=== PATIENT | female | born 2005 | race Caucasian/White ===

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

== ENCOUNTER 2023-02-20 06:19 | Emergency (ER) | payer BC, SELFPAY ==
[2023-02-20 06:20] VITALS: BP 108/71; PULSE 93; RESP 16; TEMP 36.4; O2SAT 100
--- NOTE | 2023-02-20 06:41 | PC.NURSE ---
C/o lower left back pain x 9 days. Pt reports her PMD called in cipro for possible UTI on Sunday. On Sunday was seen at Urgent care and had CT scan completed showing possible Crohn's flair up. They changed her abx to Bactrim and gave her zofran and pain medication. States this am pain is not any better. States that her pain sometimes goes down into her left leg and buttock. Denies any known strain or trauma.
--- NOTE | 2023-02-20 07:07 | PC.NURSE ---
Report to BARBRA Duarte
[2023-02-20 07:21] LABS: Basophils Percent Auto 0.2 % (0.2-1.2); Eosinophils Percent Auto 0.2 % (0-4.4); Hematocrit 40.2 % (37.0-47.0); Hemoglobin 12.6 g/dL (12.0-15.0); Immature Granulocyte Absolute 0.05 K/mm3 (0.00-0.031); Immature Granulocyte Percent A 0.4 % (0-0.5); Lymphocytes Percent Auto 24.1 % (18.3-44.2); Mean Corpuscular HGB Conc 31.3 g/dl (32-36); Mean Corpuscular Hemoglobin 27.7 pg (26-34); Mean Corpuscular Volume 88.4 fl (80-100); Mean Platelet Volume 8.6 fl (7.4-10.4); Monocytes Absolute Auto 1.1 K/mm3 (0.1-0.6); Monocytes Percent Auto 7.9 % (2.6-8.5); Neutrophils Absolute Auto 9.2 K/mm3 (1.3-6.7); Neutrophils Percent Auto 67.2 % (45.5-73.1); Platelet Count Result 284 k/mm3 (150-375); Red Blood Count 4.55 M/mm3 (4.2-5.4); Red Cell Distribution Width 14.3 % (11.5-14.5); White Blood Count 13.7 K/mm3 (4.5-10.0)
[2023-02-20 07:22] LABS: Appearance Urine Cloudy (Clear); Bacteria Urine 1+ /hpf; Bilirubin Urine Negative (Negative); Blood Urine Negative (Negative); Color Urine Dark Yellow (Yellow); Glucose Urine UA Negative (Negative); Ketones Urine Trace mg/dL (Negative); Leukocyte Esterase Ur 1+ LEU/UL (Negative); Need Manual Microscopic Reviewed; Nitrate Urine Negative (Negative); Non Pathogenic Casts 0-2; Protein Urine Negative (Negative); RBC Urine 0-2 /hpf (0-2); Specific Grav Ur 1.031 (1.001-1.035); Squamous Epithelial Cell Urine Few /hpf (Few); WBC Urine 0-5 /hpf; pH Urine 6.5 (5.0-9.0)
[2023-02-20 07:29] LABS: Add Urine Microscopic? YES
[2023-02-20 07:32] LABS: Alanine Aminotransferase 14 U/L (6-35); Albumin Level 3.5 g/dL (3.7-5.6); Alkaline Phosphatase 72 U/L (45-116); Anion Gap 6 mmol/L (8-16); Aspartate Amino Transferase 19 U/L (14-36); Bilirubin,Total 0.3 mg/dL (0.2-1.3); Blood Urea Nitrogen 17 mg/dL (8-21); Carbon Dioxide 30 mmol/L (22-30); Chloride 101 mmol/L (98-107); Estimated CRCL calculation 80 ml/min; Estimated Glomerular Filt Rate > 60; Glucose 123 mg/dL (65-110); Lipase 33 U/L (23-300); Potassium 3.5 mmol/L (3.4-5.0); Sodium 137 mmol/L (134-143)
[2023-02-20 07:33] LABS: Lactic Acid Reflex 2.6 mmol/L (0.7-2.0)
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
[2023-02-20] MEDS: HYDROcodone/acetaminophen (*CRX) 5-325 MG TABLET 1 TAB PO (07:51)
[2023-02-20] MEDS: SODIUM CHLORIDE 0.9% IV 1,000 ML 999 ML IV CONT (07:58)
[2023-02-20 08:56] VITALS: BP 96/54; PULSE 85; RESP 14; O2SAT 98
[2023-02-20 10:19] LABS: Reflex Lactic Acid Yes or No Add Lactic
== END 2023-02-20 09:24 | disposition home or self-care (01) ==
PROVIDERS: Emergency Provider Emergency Medicine; PCP Family Medicine
DX: M54.42 Lumbago with sciatica, left side (principal); K50.90 Crohn's disease, unspecified, without complications; F17.290 Nicotine dependence, other tobacco product, uncomplicated
CPT/HCPCS: 36415; 80053; 81001; 81025; 83605; 83690; 85025; 99283; A9270; J7030

== ENCOUNTER 2023-06-20 08:42 | Emergency (ER) | payer BC, SELFPAY ==
[2023-06-20] VITALS (18 sets, daily range): BP systolic 91–120; BP diastolic 53–72; PULSE 62–93; RESP 12–20; TEMP 36.8; O2SAT 99–100
--- NOTE | ~2023-06-20 | CT_ITS ---
EXAMINATION: CT abdomen pelvis w con INDICATION: Abdominal pain, history of Crohn's TECHNIQUE: Computed tomographic images of the abdomen and pelvis were obtained after the administrati on of 100 cc of Omnipaque 350 intravenous contrast. The dose-length product (DLP) was 216.06 mGy-cm. Automated exposure control and iterative reconstruction technique were employed. COMPARISON: 12/22/2022 FINDINGS: The lung bases are clear. The heart size is normal. The liver, spleen, pancreas, gallbladde r, and adrenal glands are normal. The kidneys are unremarkable. No free intraperitoneal gas or eviden ce of bowel obstruction. There is persistent wall thickening and increased enhancement of the termina l ileum. There appears to be an enteroenteric fistula of the right lower quadrant with a possible 1.6 x 1.2 cm interloop abscess best appreciated on coronal reconstructed image 35. There is mild mesente thalia lymphadenopathy, likely reactive. There are no dilated loops of bowel. The visualized osseous str uctures are unremarkable. There is a small volume of pelvic ascites. IMPRESSION: 1. 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 Reviewed, dictated and finalized at location B. R OPERATOR IMPRESSION: 1. 

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
[2023-06-20 09:59] LABS: Basophils Percent Auto 0.4 % (0.2-1.2); Eosinophils Absolute Auto 0.2 K/mm3 (0-0.3); Eosinophils Percent Auto 2.6 % (0-4.4); Hematocrit 38.1 % (37.0-47.0); Hemoglobin 12.3 g/dL (12.0-15.0); Immature Granulocyte Absolute 0.02 K/mm3 (0.00-0.031); Immature Granulocyte Percent A 0.2 % (0-0.5); Lymphocytes Absolute Auto 1.66 K/mm3 (0.9-3.2); Lymphocytes Percent Auto 17.7 % (18.3-44.2); Mean Corpuscular HGB Conc 32.3 g/dl (32-36); Mean Corpuscular Hemoglobin 28.1 pg (26-34); Mean Platelet Volume 9.3 fl (7.4-10.4); Monocytes Absolute Auto 0.7 K/mm3 (0.1-0.6); Monocytes Percent Auto 7.4 % (2.6-8.5); Neutrophils Absolute Auto 6.7 K/mm3 (1.3-6.7); Neutrophils Percent Auto 71.7 % (45.5-73.1); Platelet Count Result 255 k/mm3 (150-375); Red Blood Count 4.38 M/mm3 (4.2-5.4); Red Cell Distribution Width 11.4 % (11.5-14.5); White Blood Count 9.4 K/mm3 (4.5-10.0)
[2023-06-20 10:09] LABS: Appearance Urine Clear (Clear); Bacteria Urine Rare /hpf; Bilirubin Urine Negative (Negative); Blood Urine Negative (Negative); Color Urine Yellow (Yellow); Glucose Urine UA Negative (Negative); Ketones Urine Trace mg/dL (Negative); Leukocyte Esterase Ur Negative LEU/UL (Negative); Mucus Urine Present /lpf; Need Manual Microscopic Reviewed; Nitrate Urine Negative (Negative); Protein Urine Trace mg/dL (Negative); Squamous Epithelial Cell Urine Occasional /hpf (Few); WBC Urine 0-5 /hpf
[2023-06-20 10:10] LABS: Specific Grav Ur 1.037 (1.001-1.035)
[2023-06-20 10:11] LABS: Add Urine Microscopic? YES; Alanine Aminotransferase 12 U/L (6-35); Alkaline Phosphatase 86 U/L (45-116); Anion Gap 6 mmol/L (8-16); Aspartate Amino Transferase 19 U/L (14-36); Bilirubin,Total 0.4 mg/dL (0.2-1.3); Blood Urea Nitrogen 15 mg/dL (8-21); Calcium 9.6 mg/dL (8.9-10.7); Carbon Dioxide 27 mmol/L (22-30); Chloride 105 mmol/L (98-107); Estimated CRCL calculation 80 ml/min; Estimated Glomerular Filt Rate > 60; Glucose 82 mg/dL (65-110); Lipase 30 U/L (23-300); Potassium 3.8 mmol/L (3.4-5.0); Sodium 138 mmol/L (134-143)
[2023-06-20] MEDS: MORPHINE SULFATE (*CRX) 4 MG/ML INJ IV PUSH ×2 (10:30→14:59)
[2023-06-20] MEDS: ONDANSETRON INJ 4 MG/2 ML VIAL IV PUSH (10:30)
[2023-06-20] MEDS: SODIUM CHLORIDE 0.9% IV 1,000 ML 999 ML IV CONT (10:31)
[2023-06-20] MEDS: metroNIDAZOLE 500 MG/ISO 100ML 500 MG/100 ML BAG 100 MG IVPB (13:40)
== END 2023-06-20 16:15 | disposition short-term general hospital (02) ==
PROVIDERS: Emergency Provider Physician Assistant; PCP Family Medicine
DX: K65.1 Peritoneal abscess (principal); F17.290 Nicotine dependence, other tobacco product, uncomplicated
CPT/HCPCS: 36415; 74177; 80053; 81001; 81025; 83690; 85025; 87040; 96361; 96365; 96367; 96375; 96376; 99285; J0696; J1836; J2270; J2405; J7030; Q9967

== ENCOUNTER 2023-09-17 15:31 | Emergency (ER) | payer BC, SELFPAY ==
--- NOTE | ~2023-09-17 | CT_ITS ---
EXAMINATION: CT abdomen pelvis w con DATE: 09/17/2023 17:37 INDICATION: Abdominal pain TECHNIQUE: Computed tomography (CT) of the abdomen and pelvis was performed with 100 mL Omnipaque-350 intravenous contrast. Automated exposure control and iterative reconstruction technique were employe d. The dose-length product was 218.36 mGy-cm. COMPARISON: 06/20/2023 FINDINGS: Lung bases are clear. Heart size normal. No pericardial or pleural effusion. Liver, decompressed gall bladder, spleen, pancreas, bilateral adrenal glands and kidneys are normal. There are some wall thick ening and mucosal hyperemia along the terminal ileum consistent with terminal ileitis. Appendix is no rmal. Bladder is normal. Anteverted uterus and bilateral adnexa are unremarkable. Small amount of lik patricia physiologic versus reactive free fluid in the cul-de-sac. No abscess or free intraperineal gas. N o pathologically enlarged abdominal or pelvic lymphadenopathy. Bones are unremarkable. IMPRESSION: 1. Persistent terminal ileitis consistent with Crohn's disease with minimal either physiologic versus reactive free fluid in the cul-de-sac. No abscess or free intraperitoneal gas. Reviewed, dictated and finalized at location A. IMPRESSION: 1. Persistent terminal ileitis consistent with Crohn's disease with minimal eit her physiologic versus reactive free fluid in the cul-de-sac. No abscess or robert e intraperitoneal gas.
[2023-09-17 15:36] VITALS: BP 126/76; PULSE 77; RESP 16; TEMP 36.8; O2SAT 98
--- NOTE | 2023-09-17 16:06 | ED.GENADULT ---
HPI - General Adult General Chief complaint: Abdominal Pain <Carmen Silverio August, - Last Filed: 09/17/23 16:12> Stated complaint: abdominal pain <Carmen Silverio August, - Last Filed: 09/17/23 16:12> Time Seen by Provider: 09/17/23 16:06 <Carmen Silverio August, - Last Filed: 09/17/23 16:12> Focused HPI: Cecille Anaya is a 17 y/o female with PMhx of Crohn's and had an abscess to her intestines in May and was transferred from here to [facility] because that is who her GI specialist is. She was on IV antibiotics and she was d/c home with Oral antibiotics. She reports she has been doing well until today when she started to have right lower abdominal pain that started today and across her abdomen - she states this pain is similar to her previous GI abscess No previous abdominal surgeries No fevers/chills Denies Nausea/ Vomiting LMP September 02 - GENERAL: Well-appearing, well-nourished, and in no acute distress. HEAD: Normocephalic, atraumatic. CHEST: Clear to auscultation. ?No respiratory distress. HEART: Regular rate and rhythm.? NEURO: ?Alert and oriented x3. Patient screened in triage and initial orders placed.? ?Additional care and disposition to be based upon?diagnostic testing and treatment. <Carmen Silverio August, - Last Filed: 09/17/23 16:12> Source: patient and family <Clarence Dupont MD - Last Filed: 09/17/23 18:52> Mode of arrival: ambulatory <Clarence Dupont MD - Last Filed: 09/17/23 18:52> Limitations: no limitations <Clarence Dupont MD - Last Filed: 09/17/23 18:52> History of Present Illness HPI narrative: 17-year-old with a history of Crohn's here with a complaint of right lower abdominal pain started yesterday. She denies any fever or chills no history of blood in the stool. She follows with a GI specialist at [facility]. Patient states that she had intra-abdominal abscesses in month of May and was transferred from [place] to [facility] at that time. Patient states that she she was on steroids in May . <Clarence Dupont MD - Last Filed: 09/17/23 18:52> Onset (ago): day(s) (1) <Clarence Dupont MD - Last Filed: 09/17/23 18:52> Location: abdomen <Clarence Dupont MD - Last Filed: 09/17/23 18:52> Radiation: non-radiation <Clarence Dupont MD - Last Filed: 09/17/23 18:52> Severity: moderate <Clarence Dupont MD - Last Filed: 09/17/23 18:52> Quality: aching <Clarence Dupont MD - Last Filed: 09/17/23 18:52> Relieving factors: none <Clarence Dupont MD - Last Filed: 09/17/23 18:52> Exacerbating factors: none <Clarence Dupont MD - Last Filed: 09/17/23 18:52> Associated symptoms: denies other symptoms <Clarence Dupont MD - Last Filed: 09/17/23 18:52> Treatments prior to arrival: none <Clarence Dupont MD - Last Filed: 09/17/23 18:52> Related Data Allergies/adverse reactions: Allergies Allergy/AdvReac Type Severity Reaction Status Date / Time amoxicillin [From Augmentin] Allergy Severe Hives Verified 09/17/23 17:50 banana Allergy Severe Anaphylaxis Verified 09/17/23 17:50 clavulanic acid Allergy Severe Hives Verified 09/17/23 17:50 [From Augmentin] Penicillins Allergy Anaphylaxis Verified 09/17/23 17:50 <Carmen Arroyo APRN - Last Filed: 09/17/23 16:12> Review of Systems Review of Systems: All systems reviewed & are unremarkable except as noted in HPI and below <Clarence Dupont MD - Last Filed: 09/17/23 18:52> Constitutional: Constitutional: Reports no additional constitutional complaints <Clarence Dupont MD - Last Filed: 09/17/23 18:52> Eyes: Eyes: Reports no additional eye complaints <Clarence Dupont MD - Last Filed: 09/17/23 18:52> ENT: Reports system reviewed and no additional complaints, except as documented <Clarence Dupont MD - Last Filed: 09/17/23 18:52> Cardiovascular: Cardiovascular: Reports no additional cardiovascular complaints <Clarence Dupont MD - Last Filed: 09/17/23 18:52> Re
[2023-09-17] MEDS: KETOROLAC 30 MG/ML VIAL (*BKC) IV PUSH (16:44)
[2023-09-17] MEDS: FAMOTIDINE 20 MG/2 ML VIAL IV PUSH (16:46)
[2023-09-17 17:00] LABS: Basophils Percent Auto 0.3 % (0.2-1.2); Eosinophils Absolute Auto 0.4 K/mm3 (0-0.3); Eosinophils Percent Auto 3.2 % (0-4.4); Hematocrit 42.2 % (37.0-47.0); Hemoglobin 13.9 g/dL (12.0-15.0); Immature Granulocyte Absolute 0.03 K/mm3 (0.00-0.031); Immature Granulocyte Percent A 0.3 % (0-0.5); Lymphocytes Absolute Auto 2.87 K/mm3 (0.9-3.2); Lymphocytes Percent Auto 24.5 % (18.3-44.2); Mean Corpuscular HGB Conc 32.9 g/dl (32-36); Mean Corpuscular Hemoglobin 28.8 pg (26-34); Mean Corpuscular Volume 87.6 fl (80-100); Monocytes Absolute Auto 0.7 K/mm3 (0.1-0.6); Monocytes Percent Auto 5.6 % (2.6-8.5); Neutrophils Absolute Auto 7.7 K/mm3 (1.3-6.7); Neutrophils Percent Auto 66.1 % (45.5-73.1); Platelet Count Result 246 k/mm3 (150-375); Red Blood Count 4.82 M/mm3 (4.2-5.4); Red Cell Distribution Width 12.8 % (11.5-14.5); White Blood Count 11.7 K/mm3 (4.5-10.0)
[2023-09-17 17:01] LABS: Appearance Urine Clear (Clear); Bilirubin Urine Negative (Negative); Blood Urine Negative (Negative); Color Urine Yellow (Yellow); Glucose Urine UA Negative (Negative); Ketones Urine Negative (Negative); Leukocyte Esterase Ur Negative LEU/UL (Negative); Nitrate Urine Negative (Negative); Protein Urine Negative (Negative); Specific Grav Ur 1.021 (1.001-1.035); Urobilinogen Urine 0.2 mg/dL (<2.0); pH Urine 5.5 (5.0-9.0)
[2023-09-17 17:07] LABS: Add Urine Microscopic? NO
[2023-09-17 17:13] LABS: Alanine Aminotransferase 20 U/L (6-35); Albumin Level 4.5 g/dL (3.7-5.6); Alkaline Phosphatase 96 U/L (45-116); Anion Gap 9 mmol/L (4-12); Aspartate Amino Transferase 27 U/L (14-36); Bilirubin,Total 0.4 mg/dL (0.2-1.3); Blood Urea Nitrogen 11 mg/dL (8-21); Calcium 9.4 mg/dL (8.9-10.7); Carbon Dioxide 23 mmol/L (22-30); Chloride 106 mmol/L (98-107); Estimated CRCL calculation 94 ml/min; Estimated Glomerular Filt Rate > 60; Glucose 84 mg/dL (65-110); Lactic Acid Reflex 0.9 mmol/L (0.7-2.0); Potassium 3.9 mmol/L (3.4-5.0); Sodium 138 mmol/L (134-143)
[2023-09-17 17:51] VITALS: BP 110/71; PULSE 64; RESP 11; O2SAT 100
[2023-09-17] MEDS: predniSONE 20 MG TABLET 40 MG PO (18:57)
[2023-09-17 18:58] VITALS: BP 106/65; PULSE 78; RESP 13; O2SAT 99
[2023-09-17 19:02] VITALS: BP 106/65; PULSE 78; RESP 13; TEMP 36.8; O2SAT 100
[2023-09-17 19:08] LABS: CRP < 0.5 mg/dL (<1.0)
== END 2023-09-17 19:03 | disposition home or self-care (01) ==
PROVIDERS: Nurse Practitioner Family; Emergency Provider Family Medicine; PCP Family Medicine
DX: K50.00 Crohn's disease of small intestine without complications (principal); F17.290 Nicotine dependence, other tobacco product, uncomplicated
CPT/HCPCS: 36415; 74177; 80053; 81003; 81025; 83605; 85025; 86140; 96374; 96375; 99284; J1885; J7512; Q9967

== ENCOUNTER 2023-12-12 08:58 | Outpatient (RCR) | payer BC, SELFPAY ==
[2023-12-12 09:09] VITALS: BP_SYST 65
--- NOTE | 2023-12-18 09:17 | PTOPEVAL1 ---
Assessment and note entered by Barbara Cerrato, PT Evaluation Information Assessment Status Evaluation Diagnosis M25.511 ICD-10 Condition Codes (PT) M25.511,M25.521,Weakness R53.1 Onset approx 3 months ago Subjective Information Pt reports pain to R shoulder occasionally goes down to the R arm. Reports approx 3 months ago lifting a patient at work and felt a pop on the R shoulder, felt more of a soreness, but gradually got worse over time. 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 Pain wakes her up at night, moving makes it worst; resting, ice, heat, tylenol helps to relieve pain. Pt states any activity that involves overhead reaching, and reaching out to the side to push/ pull an object is extremely challenging at this time. She uses intermittent ice and heat after work at night, middle of the night. Personal goal for therapy is to avoid surgery and perform activities at home and work at pain free levels. Used to play soccer, basketball, volleyball. Plan of Care Interventions Electrical Stimulation,Manual Therapy,Neuro Re- education,Patient/Caregiver Educati,Therapeutic Activities,Therapeutic Exercise,Ultrasound Other Interventions IASTM, Taping PT Services Indicated Yes Treatment Frequency and 2x/wk x 12 visits Duration These treatments will address the objective and functional deficits as defined above. The patient will be advanced safely and appropriately in order for the patient to progress towards his/her prior level of function. Additional exercises will be introduced and as well as a comprehensive home exercise program upon discharge, if needed, ?to ensure carryover of functional gains achieved in the clinic. This treatment plan has been reviewed and agreement upon by the patient.
--- NOTE | 2023-12-19 13:36 | PTOPEVAL1 ---
Assessment and note entered by Barbara Cerrato, PT Evaluation Information Assessment Status Evaluation Diagnosis M25.511 ICD-10 Condition Codes (PT) M25.511,M25.521,Weakness R53.1 Onset approx 3 months ago Subjective Information Pt reports pain to R shoulder occasionally goes down to the R arm. Reports approx 3 months ago lifting a patient at work and felt a pop on the R shoulder, felt more of a soreness, but gradually got worse over time. 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 Pain wakes her up at night, moving makes it worst; resting, ice, heat, tylenol helps to relieve pain. Pt states any activity that involves overhead reaching, and reaching out to the side to push/ pull an object is extremely challenging at this time. She uses intermittent ice and heat after work at night, middle of the night. Personal goal for therapy is to avoid surgery and perform activities at home and work at pain free levels. Used to play soccer, basketball, volleyball. Assessment PT Clinical Summary Pt is a 18 yo female who presents to therapy with c/o increasing pain to R shoulder occasionally radiating down to R elbow, demos significant loss of ROM and strength which greatly impact her work responsibilities, ADLs and IADLs at this time. She will benefit from skilled PT to address pain, improve shoulder mobility and stability. Plan of Care Interventions Electrical Stimulation,Manual Therapy,Neuro Re- education,Patient/Caregiver Education,Therapeutic Activities,Therapeutic Exercise,Ultrasound Other Interventions IASTM, Taping PT Services Indicated Yes Treatment Frequency and 2x/wk x 12 visits Duration These treatments will address the objective and functional deficits as defined above. The patient will be advanced safely and appropriately in order for the patient to progress towards his/her prior level of function. Additional exercises will be introduced and as well as a comprehensive home exercise program upon discharge, if needed, ?to ensure carryover of functional gains achieved in the clinic. This treatment plan has been reviewed and agreement upon by the patient.
--- NOTE | 2023-12-19 14:29 | OPREHPOC ---
Outpatient Therapy Plan of Care This is a Multidisciplinary Plan of Care that may contain components documented by all disciplines (PT, OT, and ST.) PT Problem 1 PT Problem #1 Knowledge Deficit PT Goal 1 Goal / Goal Update Pt will demo HEPs for shoulder stability and strengthening independently Target Visit 12 PT Problem 2 PT Problem #2 Pain PT Goal 1 Goal / Goal Update Pt will report 2/10 pain to R shoulder when performing abduction and overhead flexion Target Visit 12 PT Problem 3 PT Problem #3 Impaired Strength PT Goal 1 Goal / Goal Update Pt will demo 4/5 gross strength to R shoulder muscles Target Visit 12 PT Problem 4 PT Problem #4 Impaired Functional Mobil PT Goal 1 Goal / Goal Update Pt will report a decrease in score of QUICK DASH to 10 or less Target Visit 12
--- NOTE | 2024-02-01 10:25 | PTOPDC ---
Assessment and note entered by Uma Beavers, PT Evaluation Information Assessment Status Discharge - Pt Not Present Diagnosis M25.511 ICD-10 Condition Codes (PT) M25.511,M25.521,Weakness R53.1 Onset approx 3 months ago Subjective Information Pt reports pain to R shoulder occasionally goes down to the R arm. Reports approx 3 months ago lifting a patient at work and felt a pop on the R shoulder, felt more of a soreness, but gradually got worse over time. 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 Pain wakes her up at night, moving makes it worst; resting, ice, heat, tylenol helps to relieve pain. Pt states any activity that involves overhead reaching, and reaching out to the side to push/ pull an object is extremely challenging at this time. She uses intermittent ice and heat after work at night, middle of the night. Personal goal for therapy is to avoid surgery and perform activities at home and work at pain free levels. Used to play soccer, basketball, volleyball. Assessment PT Clinical Summary Pt attended evaluation only for therapy. She cancelled her first appointment, and did not return. After multiple unsuccessful attempts to reschedule, pt is being discharged due to nonattendance. Plan of Care PT Services Indicated No
--- NOTE | 2024-02-01 12:38 | PTOPDC ---
Assessment and note entered by Barbara Cerrato, PT Discharge Information Assessment Status Discharge - Pt Not Presen Diagnosis M25.511 ICD-10 Condition Codes (PT) M25.511,M25.521,Weakness R53.1 Onset approx 3 months ago Subjective Information Pt reports pain to R shoulder occasionally goes down to the R arm. Reports approx 3 months ago lifting a patient at work and felt a pop on the R shoulder, felt more of a soreness, but gradually got worse over time. 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 Pain wakes her up at night, moving makes it worst; resting, ice, heat, tylenol helps to relieve pain. Pt states any activity that involves overhead reaching, and reaching out to the side to push/ pull an object is extremely challenging at this time. She uses intermittent ice and heat after work at night, middle of the night. Personal goal for therapy is to avoid surgery and perform activities at home and work at pain free levels. Used to play soccer, basketball, volleyball. Assessment PT Clinical Summary Pt attended evaluation only for therapy. She cancelled her first appointment, and did not return. After multiple unsuccessful attempts to reschedule, pt is being discharged due to nonattendance. Plan of Care PT Services Indicated No
== END 2024-02-01 10:40 | disposition home or self-care (01) ==
LOC: ANHHIPT 08:58
PROVIDERS: PCP Family Medicine; Visit Provider Nurse Practitioner Family
DX: M25.511 Pain in right shoulder (principal)
CPT/HCPCS: 97014; 97110; 97161; G0283

== ENCOUNTER 2023-12-30 15:21 | Emergency (ER) | payer BC, SELFPAY ==
--- NOTE | ~2023-12-30 | XR_ITS ---
EXAMINATION: XR chest 2V DATE: 12/30/2023 16:10 INDICATION: Chest pain and shortness of breath TECHNIQUE: PA and lateral views of the chest were obtained. COMPARISON: Chest radiograph dated 10/05/2022 FINDINGS: The lungs remain clear with no focal airspace opacities, pulmonary edema, pleural effusion or pneumot horax. The cardiomediastinal silhouette is normal. Visualized bones and soft tissues are unremarkable . IMPRESSION: 1. Normal chest radiograph. Reviewed, dictated and finalized at location A. IMPRESSION: 1. Normal chest radiograph.
[2023-12-30 15:28] VITALS: BP 123/74; PULSE 112; RESP 18; TEMP 36.7; O2SAT 100
[2023-12-30 16:34] LABS: Strep Group A RT-PCR NOT DETECTED (Negative)
[2023-12-30 16:44] LABS: Influenza A QL RT-PCR Negative (Negative); Influenza B QL RT-PCR Negative (Negative); RSV RNA, RT-PCR Negative (Negative); SARS-CoV-2 RNA PCR Negative (Negative)
--- NOTE | 2023-12-30 17:32 | ECG_ITS ---
Test Date: 2023-12-30 17:45:02 Measurements Intervals [place] Rate: 89 P: 60 PA: 123 QRS: 6 QRSD: 88 T: 35 QT: 374 QTc: 455 Interpretive Statements SINUS RHYTHM MODERATE ST-T WAVE ABNORMALITY, CONSIDER ANTERIOR ISCHEMIA ABNORMAL ECG No previous ECG available for comparison Electronically Signed On 12-30-2023 20:15:42 CDT by Volodymyr Painting D.O.
[2023-12-30 17:52] LABS: Basophils Percent Auto 0.3 % (0.2-1.2); Eosinophils Absolute Auto 0.5 K/mm3 (0-0.3); Hematocrit 41.3 % (37.0-47.0); Hemoglobin 13.7 g/dL (12.0-15.0); Immature Granulocyte Absolute 0.04 K/mm3 (0.00-0.031); Immature Granulocyte Percent A 0.3 % (0-0.5); Lymphocytes Absolute Auto 1.81 K/mm3 (0.9-3.2); Lymphocytes Percent Auto 15.4 % (18.3-44.2); Mean Corpuscular HGB Conc 33.2 g/dl (32-36); Mean Corpuscular Hemoglobin 29.8 pg (26-34); Mean Platelet Volume 9.9 fl (7.4-10.4); Monocytes Absolute Auto 1.1 K/mm3 (0.1-0.6); Monocytes Percent Auto 9.7 % (2.6-8.5); Neutrophils Absolute Auto 8.2 K/mm3 (1.3-6.7); Neutrophils Percent Auto 70.3 % (45.5-73.1); Platelet Count Result 208 k/mm3 (150-375); Red Blood Count 4.59 M/mm3 (4.2-5.4); Red Cell Distribution Width 12.2 % (11.5-14.5); White Blood Count 11.7 K/mm3 (4.5-10.0)
[2023-12-30] MEDS: SODIUM CHLORIDE 0.9% IV 1,000 ML 999 ML IV CONT (17:58)
[2023-12-30 18:03] LABS: Alanine Aminotransferase 14 U/L (6-35); Albumin Level 4.4 g/dL (3.5-5.1); Alkaline Phosphatase 104 U/L (38-126); Anion Gap 10 mmol/L (4-12); Aspartate Amino Transferase 24 U/L (14-36); Bilirubin,Total 0.5 mg/dL (0.2-1.3); Blood Urea Nitrogen 10 mg/dL (7-17); Calcium 9.5 mg/dL (8.4-10.2); Carbon Dioxide 22 mmol/L (22-30); Chloride 105 mmol/L (98-107); Estimated CRCL calculation 91 ml/min; Estimated Glomerular Filt Rate > 60; Glucose 85 mg/dL (65-110); Lipase 52 U/L (23-300); Potassium 3.6 mmol/L (3.4-5.0); Sodium 137 mmol/L (137-145)
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
[2023-12-30 18:14] LABS: Troponin I < 0.012 ng/mL (0.000-0.034)
[2023-12-30 18:16] LABS: Prothrombin Time 13.8 Seconds (11.1-14.7)
[2023-12-30 18:18] LABS: Partial Thromboplastin Time 26.5 Seconds (22.3-36.8)
[2023-12-30 18:27] VITALS: PULSE 90; RESP 18
[2023-12-30] MEDS: IPRATROPIUM 0.5 MG/ALBUTEROL SULFATE 2.5 MG AMPUL.NEB 3 ML INHALATION (18:27)
[2023-12-30] MEDS: methylPREDNISolone SOD SUCC 125 MG VIAL IV PUSH (18:29)
[2023-12-30 18:39] VITALS: BP 130/78; PULSE 72; RESP 20; TEMP 36.7; O2SAT 99
== END 2023-12-30 18:40 | disposition home or self-care (01) ==
PROVIDERS: Emergency Medicine; Emergency Provider Emergency Medicine; PCP Family Medicine
DX: B34.9 Viral infection, unspecified (principal); K50.90 Crohn's disease, unspecified, without complications; Z72.0 Tobacco use; Z20.822 Contact with and (suspected) exposure to COVID-19
CPT/HCPCS: 36415; 71046; 80053; 83690; 84484; 85025; 85610; 85730; 87637; 87651; 93005; 94640; 96361; 96374; 99284; J2919; J7030

== ENCOUNTER 2024-07-14 15:58 | Outpatient (CLI) | payer BC, SELFPAY ==
--- NOTE | ~2024-07-14 | XR_ITS ---
XR knee LT 3V 07/14/2024 16:09 Indication: Left knee pain Procedure: 3 views left knee Comparison: No prior studies for comparison. Findings: There is anatomic alignment. No significant joint space narrowing. No fracture or traumatic malalignment. No foreign bodies. Impression: 1: No acute bone or joint abnormality. Reviewed, dictated and finalized at location B. Impression: 1: No acute bone or joint abnormality.
== END 2024-07-14 15:59 | disposition home or self-care (01) ==
LOC: GOSHIMG 15:59
PROVIDERS: PCP Nurse Practitioner Family; Visit Provider Student in an Organized Health Care Education/Training Program
DX: S89.92XA Unspecified injury of left lower leg, initial encounter (principal); X58.XXXA Exposure to other specified factors, initial encounter
CPT/HCPCS: 73562

== ENCOUNTER 2025-01-15 14:46 | Emergency (ER) | payer BC, SELFPAY ==
--- NOTE | ~2025-01-15 | XR_ITS ---
EXAMINATION: XR chest 2V, 01/15/2025 15:11 CDT HISTORY: shortness of breath COMPARISON: No comparisons available. Technique: 2 views obtained. Findings: The lungs are clear, no effusion. No pneumothorax. Heart is normal size. Mediastinal and hilar contours are within normal limits. Bony thorax no acute abnormality. Impression: No acute cardiopulmonary abnormality. Reviewed, dictated and finalized at location A. Impression: No acute cardiopulmonary abnormality.
--- OUTSIDE RECORDS SUMMARY | 2025-01-15 14:49 | XMS_ITS | Clinical Summary ---
Author Organization [facility] [address] Address [address] [place] [id number] Care Team Providers Care Compliance Spec Name Role Phone Unavailable Primary Care Provider Unavailabl e Social History Tobacco Use Types Packs/Day Years Used Date Smoking Tobacco: Never Assessed Adolescent Education Answer Date Record ed Getting School Help Needed Not on file 12/02 Comments Unknown Sex and Gender Information Value Date Recorded Sex Assigned at Not on file Legal Sex Female 8:53 AM CDT Gender Identity Not on file Sexual Orientation Not on file Plan of Treatment Health Maintenance Due Date Last Done Comments CHLAMYDIA SCREENING (ANNUAL) 11-24 YEARS 09/29/2014 HPV VACCINES (1 - 3-dose series) 09/29/2018 DTAP/TDAP/TD VACCINES (1 - Tdap) 09/29/2022 HEPATITIS B VACCINES (1 of 3 - 19+ 3-dose series) 05/2022 CERVICAL CANCER SCREENING 09/29/2024 HPV/Cotest (21-29) 09/29/2024 PAP SMEAR 09/29/2024 INFLUENZA VACCINE (#1) 2024 Insurance BS BLUE ACCESS/TRUE BLUE PPO [facility]
--- OUTSIDE RECORDS SUMMARY | 2025-01-15 14:49 | XMS_ITS | Clinical Summary ---
Author Organization [facility] Address [address] [place] [address] Care Team Providers Care Surveyor Geodetic Name Role Phone Jp Pearson MD Primary Care Provider [phone] Nagi Alejo MD Unavailable [phone] Allergies Active Allergy Reactions Criticality Noted Date Comments Amoxicillin-Pot Clavulanate Hives Medium 12/14/19 18 Per PCP Banana Itching Low 08/05/2021 Medications LORazepam (ATIVAN) 1 mg tablet Take 1 tablet by mouth prior to procedure 1 tablet 4 Active Additional Information Patient not taking.Reported on 10/28/2024 hyoscyamine (LEVSIN) 0.125 mg SL tabletIndication s:Urinary Incontinence Take 1 tablet (0.125 mg total) by mouth every 6 (six) hours as needed for cramping 120 tablet 5 Active Additional Information Patient not taking.Reported on 10/28/2024 ALPRAZolam (XANAX) 0.25 mg tablet Take by mouth 2 (two) times a day as needed 5 Active risankizumab-rza a (Skyrizi) 360 mg/2.4 mL (150 mg/mL) wearable injectorIndicati ons:Crohn's disease of small intestine with fistula (HCC) 360 mg by subcutaneous (via wearable injector) route every 8 (eight) weeks 2.4 mL 3 Active Active Problems Problem Noted Date Diagnosed Date Crohn's disease of small intestine with fistula 06/02/2024 Colon stricture 06/02/2024 Healthcare maintenance 05/30/2024 Overview (05/30/2024): Health Maintenance Pneumovax-23: discussed Prevnar-20: discussed Flu: --- COVID: --- Shingrix: discussed Tdap: 10/2014 Skin checks: yearly Eye exams: yearly Other constipation 05/30/2024 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 Year symptoms began: 2020- nausea, vomiting and weight loss. Phenotype: Penetrating (B3) with perianal disease. Distribution: ileal (L1) with upper GI disease (L4). Extraintestinal manifestations: no. Complications: perianal fistula, seton placement and removal in 2022. Prior treatments: Entyvio- disease progression with development of an abscess. Current treatment: Skyrizi started in 07/2023. Prior surgeries: seton 10/2022. Endoscopies: colonoscopy 12/2020 inflammation in the TI and esophagus. Imaging: MRI 06/2023- resolution of abscess suspect fistula from TI to transverse colon. MRE 03/2024: interval improvement of disease with acute on chronic inflammation CT scan : 05/2024- Colonoscopy: 06/30/24 with ADAM - dilated to 15 mm successfully mild ileitis on Skyrizi IBD HEALTH [employer]TE[employer]CE HBV vaccination status: Protein-calorie malnutrition 12/01/2022 Long-term use of immunosuppressant medication Treatment declined by patient 01/21/2022 Patellar tendinitis of right knee 05/02/2021 Acute pain of right knee 05/02/2021 Crohn's disease of small intestine without compl ication 01/25/2021 Abdominal pain, generalized 12/29/2020 Overview (12/29/2020): Added automatically from request for surgery [id number] Diarrhea 12/29/2020 Overview (12/29/2020): Added automatically from request for surgery [id number] Nausea and vomiting 12/29/2020 Overview (12/29/2020): Added automatically from request for surgery [id number] Weight loss 12/29/2020 Overview (12/29/2020): Added automatically from request for surgery [id number] Right foot pain 03/12/2020 Contusion of right foot 03/12/2020 Right knee injury 12/16/2015 Resolved Problems Problem Noted Date Diagnosed Date Resolved Date Perianal fistula due to Crohn's disease 07/27/2023 05/29/2024 Crohn's colitis, with abscess 06/20/2023 05/29/2024 Assessment & Plan (06/22/2023 10:35 AM KISS MIXER): Cecille is a 17 year old with history of Crohns who is admitted for abdominal pain with CT at OSH concerning for intra-abdominal abscess. Patient's recent abdominal pain is likely due to intra-abdominal abscess vs IBD flare with a small bowel to colon fistula. She has had significant improvement in pain so we will advance her diet to a regular diet. Given this, we will transition IV abx to oral and discontinue her maintenance fluids. - Blood culture, ESR, CRP - Cipro and flagyl (06/20- ) , switched to oral on 06/22 - Surgery consult, no surgical intervention needed - IR consult, no intervention needed - regular diet - tylenol, oxycodone 2.5mg PRN for pain - heat pack - PRN zofran Assessment & Plan (06/21/2023 9:00 AM KISS MIXER): Cecille is a 17 year old with history of Crohns who is admitted for abdominal pain with CT at OSH concerning for intra-abdominal abscess. Patient's recent abdominal pain is likely due to intra-abdominal abscess vs IBD flare with a small bowel to colon fistula. Given the abscess we will plan to treat with IV antibiotics. If IR recommends no further intervention we will advance diet to clears and monitor her pain. - Blood culture, ESR, CRP - Cipro and flagyl (06/20- ) - Surgery consult, no surgical intervention needed - IR consult - NPO, D5NS mIVF - tylenol, oxycodone 2.5mg PRN for pain - heat pack Assessment & Plan (06/20/2023 6:57 PM KISS MIXER): Cecille is a 17 year old with history of Crohns who is admitted for abdominal pain with CT at OSH concerning for intra-abdominal abscess. Patient's recent abdominal pain is likely due to intra-abdominal abscess vs IBD flare. With patient's CT findings, will plan to treat with IV antibiotics. - Blood culture, ESR, CRP - Cipro and flagyl (06/20- ) - Surgery consult - NPO D5NS mIVF Assessment & Plan (06/20/2023 7:38 PM KISS MIXER): Cecille is a 17 year old with history of Crohns who is admitted for abdominal pain with CT at OSH concerning for intra-abdominal abscess. Patient's recent abdominal pain is likely due to intra-abdominal abscess vs IBD flare. With patient's CT findings, will plan to treat with IV antibiotics. - Blood culture, ESR, CRP - Cipro and flagyl (06/20- ) - Surgery consult - NPO D5NS mIVF Crohn's disease involving esophagus 01/25/2021 05/29/2024 Mass of right breast 12/13/2017 018 Encounters Date Type Department Care Team Description 11/20/[address] [facility] Gastroenter[facility] [address] [facility] 12th [place] [address] [place] [address] Eva Roman Crohn's disease of small intestine with fistula (HCC) (Primary Dx) 11/18/[address] [facility] [address] [facility] 12th [place] [address] [place] [address] Sonya Markham RMA Crohn's disease of small intestine with fistula (HCC) (Primary Dx) 10/28/2024 2:00 PM CDT Lab [facility] [address] [place] [address] Leukocytosis, unspecified type 10/28/2024 1:00 PM CDT Office Visit [facility] [address] [facility] [address] [place] [address] Demi Serrano MD Leukocytosis, unspecified type 10/21/[address] [facility] H[facility] [facility] Floor [address] [place] [address] Gunjan Sy from Last 3 Months Immunizations Immunization Administration Dates Next Due DTaP / HiB / IPV 2008 HPV, Quadrivalent 11/16/2014 HPV9 03/05/2018,12/27/2016 Hep A, Ped Unspecified 12/11/2007,09/27/2006 Hep A, Unspecified 12/11/2007,09/27/2006 Influenza LAIV (Nasal) 05/06/2019 Influenza, Live, Intranasal, Quadrivalent 2019 Influenza, Quadrivalent, Split, Intramuscular Influenza, Unspecified 03/05/2018 MMR 2008 Meningococcal MCV4P (Menactra) 05/07/2020,2014 Tdap 11/16/2014 Surgical History Surgery Date Site/Laterality Comments INCISION AND DRAINAGE 10/28/2022 - 11/27/2022 Medical History Medical History Date Comments Arm fracture, right 07/2013 Anxiety and depression Crohn's disease (HCC) Family History Medical History Relation Name Comments No Known Problems Father Breast cancer Maternal Grandmother great No Known Problems Mother Cervical cancer Other 1 grandma Melanoma Other 2 uncle Skin cancer Paternal Grandfather Relation Name Status Comments Father Maternal Grandmother great Mother Other 1 grandma Other 2 uncle Alive Paternal Grandfather Social History Tobacco Use Types Packs/Day Years Used Date Smoking Tobacco: Every Day Vaping Passive Smoke Exposure: Never Smokeless Tobacco: Never Tobacco Cessation:Ready to Q uit: Not Asked; Counseling Given: Not Answered Alcohol Use Standard Drinks/Week Comments No 0 (1 standard drink = 0.6 oz pur e alcohol) AUDIT-C Answer Date Recorded Q1: How often do you have a drink containing alc ohol? 2-4 times a month 10/28/2024 Q2: How many drinks containi ng alcohol do you have on a typical day when you are drinking? 1 or 2 10/28/2024 Q3: How often do you have si x or more drinks on one occasion? Weekly 10/28/2024 PHQ-2 Answer Date Recorded PHQ-2 Total Score (If total score is 3 or more points, staff should administer the PHQ-9) 1 07/10/2023 PHQ-9 Answer Date Recorded PHQ-9 Total Score 5 07/10/2023 Personal Safety Answer Date Recorded Have you ever been in or are you currently in a harmful physical or emotional relationship or is someone making you feel afraid or unsafe? Denies 06/30/2024 Comments No Sex and Gender Information Value Date Recorded Sex Assigned at Not on file Legal Sex Female 4:17 PM CDT Gender Identity Not on file Sexual Orientation Not on file Obstetrics History Last Filed Vital Signs Vital Sign Reading Time Taken Comments Blood Pressure 112/76 10/28/2024 1:03 PM CDT Pulse 84 10/28/2024 1:03 PM CDT Temperature 36.8 C (98.2 F) 10/28/2024 1:03 PM CDT Respiratory Rate 18 10/28/2024 1:03 PM CDT Oxygen Saturation 99% 10/28/2024 1:03 PM CDT Inhaled Oxygen Concentration - - Weight 49.7 kg (109 lb 9.1 oz) 10/28/2024 1:03 P M CDT Height 155 cm (5' 1.02) 10/28/2024 1:03 PM CDT Body Mass Index 20.69 10/28/2024 1:03 PM CDT Plan of Treatment Health Maintenance Due Date Last Done Comments Cervical Cancer Screening 2003 Hepatitis C Screening 2003 Varicella Vaccines (1 of 2 - 13+ 2-dose series) 06/03/2019 Meningococcal B Vaccine (1 o f 2 - Standard) 2019 Hepatitis B Screening 09/29/2021 Regular Well Visit/Exam 18-64 09/29/2021 Pneumococcal vaccine <65 (1 of 2 - PCV) 09/29/2022 Depression Screening 07/09/2024 07/10/2023, 02/08/20 DTaP/Tdap/Td Vaccine (3 - Td or Tdap) 11/16/2024 11/16/2014, 2008 Influenza Vaccine (#1) 2024 , 05/06/2019, 03/05/2018, Additional history exists HPV Vaccines Completed 03/05/2018, 11/30, 11/16/2014 Meningococcal Vaccine Completed 05/07/2020, 015 Procedures Procedure Name Priority Date/Time Associated Diagnosis Comments COMPREHENSIVE METABOLIC PANEL Routine 01/08/2025 8:32 AM CDT Leukocytosis, unspecified type CBC WITH AUTO DIFFERENTIAL Routine 01/08/2025 8:32 AM CDT Leukocytosis, unspecified type COMPREHENSIVE METABOLIC PANEL Routine 11/28/2024 11:01 AM CDT Leukocytosis, unspecified type CBC WITH AUTO DIFFERENTIAL Routine 11/28/2024 11:01 AM CDT Leukocytosis, unspecified type EGFR Routine 10/28/2024 1:54 PM CDT Leukocytosis, unspecified type DIFFERENTIAL AUTO Routine 10/28/2024 1:5 4 PM CDT Leukocytosis, unspecified type CBC WITH AUTO DIFFERENTIAL Routine 10/28/2024 1:54 PM CDT Leukocytosis, unspecified type COMPREHENSIVE METABOLIC PANEL Routine 10/28/2024 1:54 PM CDT Leukocytosis, unspecified type FERRITIN Routine 10/28/2024 1:54 PM CDT Leukocytosis, unspecified type IRON PROFILE W/ IBC Routine 10/28/2024 1 :54 PM CDT Leukocytosis, unspecified type from Last 3 Months Results * CBC with auto differential (01/08/2025 8:32 AM CDT) WBC 10.7 3.4 - 10.8 x10E3/uL [facility] - 01 RBC 4.52 3.77 - 5.28 x10E6/uL [facility] - 01 Hgb 13.6 11.1 - 15.9 g/dL [facility] - 01 Hct 41.8 34.0 - 46.6 % [facility] - 01 MCV 93 79 - 97 fL [facility] - 01 MCH 30.1 26.6 - 33.0 pg [facility] - 01 MCHC 32.5 31.5 - 35.7 g/dL [facility] - 01 Rdw 11.8 11.7 - 15.4 % [facility] - 01 Platelets 228 150 - 450 x10E3/uL [facility] - 01 Neutrophils pct 63 Not Estab. % [facility] - 01 Lymphs pct 27 Not Estab. % [facility] - 01 Monocytes pct 5 Not Estab. % [facility] - 01 Eosinophils pct 3 Not Estab. % [facility] - 01 Basophil pct 1 Not Estab. % [facility] - 01 Neutrophil abs 6.7 1.4 - 7.0 x10E3/uL [facility] - 01 Lymphs (Absolute) 2.9 0.7 - 3.1 x10E3/uL [facility] - 01 Monocyte abs 0.5 0.1 - 0.9 x10E3/uL [facility] - 01 Eosinophils, abs 0.4 0.0 - 0.4 x10E3/uL [facility] - 01 Basophils, abs 0.1 0.0 - 0.2 x10E3/uL [facility] - 01 Immature Granulocytes 1 Not Estab. % [facility] - 01 Immature Grans (Abs) 0.1 0.0 - 0.1 x10E3/uL [facility] - 01 Blood 01/08/2025 8:32 AM CDT 01/08/2025 Narrative [facility] - 01/09/2025 6:09 AM CDT Performed at: - [facility] [id number] Oiler Helper: Vito Mcgrath PhD, Phone: [phone] us Demi Serrano MD LAB BLOOD ORDERABLES Keisha l Result [facility] - * Comprehensive metabolic panel (01/08/2025 8:32 AM CDT) [facility] Glucose 73 70 - 99 mg/dL [facility] - 01 BUN 11 6 - 20 mg/dL [facility] - 01 Creatinine, Serum 0.75 0.57 - 1.00 mg/dL [facility] - 01 eGFR 116 >59 mL/min/1.73 [facility] - 01 BUN/creat ratio 15 9 - 23 [facility] - 01 Sodium 140 134 - 144 mmol/L [facility] - 01 Potassium, sr 4.8 3.5 - 5.2 mmol/L [facility] - 01 Chloride 105 96 - 106 mmol/L [facility] - 01 CO2 24 20 - 29 mmol/L [facility] - 01 Calcium 9.6 8.7 - 10.2 mg/dL [facility] - 01 Protein, sr 6.7 6.0 - 8.5 g/dL [facility] - 01 Albumin 4.4 4.0 - 5.0 g/dL [facility] - 01 Globulin, Total 2.3 1.5 - 4.5 g/dL [facility] - 01 Bilirubin, Total 0.5 0.0 - 1.2 mg/dL [facility] - 01 Alk phos 78 44 - 121 IU/L [facility] - 01 Comment: Effective January 12, 2025 Alkaline Phosphatase reference interval will be changing to: Age Male Female 0 - 5 days 47 - 127 47 - 127 6 - 10 days 29 - 242 29 - 242 11 - 20 days 109 - 357 109 - 357 21 - 30 days 94 - 494 94 - 494 1 - 2 months 149 - 539 149 - 539 3 - 6 months 131 - 452 131 - 452 7 - 11 months 117 - 401 117 - 401 12 months - 6 years 158 - 369 158 - 369 7 - 12 years 150 - 409 150 - 409 13 years 156 - 435 78 - 227 14 years 114 - 375 64 - 161 15 years 88 - 279 56 - 134 16 years 74 - 207 51 - 121 17 years 63 - 161 47 - 113 18 - 20 years 51 - 125 42 - 106 21 - 50 years 47 - 123 41 - 116 51 - 80 years 49 - 135 51 - 125 >80 years 48 - 129 48 - 129 AST 16 0 - 40 IU/L [facility] - 01 ALT 11 0 - 32 IU/L [facility] - 01 Blood 01/08/2025 8:32 AM CDT 01/08/2025 Narrative [facility] - 01/09/2025 8:12 AM CDT Performed at: [address] [place] [id number] Oiler Helper: Vito Mcgrath PhD, Phone: [phone] us Demi Serrano MD LAB BLOOD ORDERABLES Keisha l Result [facility] - 01 * (ABNORMAL) CBC with auto differential (11/28/2024 11:01 AM CDT) WBC 14.6(H) 3.4 - 10.8 x10E3/uL [facility] - 01 RBC 4.48 3.77 - 5.28 x10E6/uL [facility] - 01 Hgb 13.5 11.1 - 15.9 g/dL [facility] - 01 Hct 40.4 34.0 - 46.6 % [facility] - 01 MCV 90 79 - 97 fL [facility] - 01 MCH 30.1 26.6 - 33.0 pg [facility] - 01 MCHC 33.4 31.5 - 35.7 g/dL [facility] - 01 Rdw 11.6(L) 11.7 - 15.4 % [facility] - 01 Platelets 280 150 - 450 x10E3/uL [facility] - 01 Neutrophils pct 77 Not Estab. % [facility] - 01 Lymphs pct 16 Not Estab. % [facility] - 01 Monocytes pct 6 Not Estab. % [facility] - 01 Eosinophils pct 1 Not Estab. % [facility] - 01 Basophil pct 0 Not Estab. % [facility] - 01 Neutrophil abs 11.2(H) 1.4 - 7.0 x10E3/uL [facility] - 01 Lymphs (Absolute) 2.3 0.7 - 3.1 x10E3/uL [facility] - 01 Monocyte abs 0.9 0.1 - 0.9 x10E3/uL [facility] - 01 Eosinophils, abs 0.1 0.0 - 0.4 x10E3/uL [facility] - 01 Basophils, abs 0.1 0.0 - 0.2 x10E3/uL [facility] - 01 Immature Granulocytes 0 Not Estab. % [facility] - 01 Immature Grans (Abs) 0.0 0.0 - 0.1 x10E3/uL [facility] - 01 Blood 11/28/2024 11:0 1 AM CDT 11/28/2024 Narrative [facility] - 11/29/2024 3:07 AM CDT Performed at: [address] [place] [id number] Oiler Helper: Vito Mcgrath PhD, Phone: [phone] us Demi Serrano MD LAB BLOOD ORDERABLES Keisha l Result [facility] * Comprehensive metabolic panel (11/28/2024 11:01 AM CDT) Pathologist [facility] Glucose 85 70 - 99 mg/dL [facility] - 01 BUN 7 6 - 20 mg/dL [facility] - 01 Creatinine, Serum 0.81 0.57 - 1.00 mg/dL [facility] - 01 eGFR 106 >59 mL/min/1.73 [facility] - 01 BUN/creat ratio 9 9 - 23 [facility] - 01 Sodium 138 134 - 144 mmol/L [facility] - 01 Potassium, sr 4.1 3.5 - 5.2 mmol/L [facility] - 01 Chloride 103 96 - 106 mmol/L [facility] - 01 CO2 21 20 - 29 mmol/L [facility] - 01 Calcium 9.8 8.7 - 10.2 mg/dL [facility] - 01 Protein, sr 6.8 6.0 - 8.5 g/dL [facility] - 01 Albumin 4.2 4.0 - 5.0 g/dL [facility] - 01 Globulin, Total 2.6 1.5 - 4.5 g/dL [facility] - 01 Bilirubin, Total 0.4 0.0 - 1.2 mg/dL [facility] - 01 Alk phos 81 44 - 121 IU/L [facility] - 01 AST 14 0 - 40 IU/L [facility] - 01 ALT 9 0 - 32 IU/L [facility] - 01 Blood 11/28/2024 11:0 1 AM CDT 11/28/2024 Narrative [facility] - 11/29/2024 3:07 AM CDT Performed at: [address] [id number] Oiler Helper: Vito Mcgrath PhD, Phone: [phone] Demi Serrano MD LAB BLOOD ORDERABLES Keisha l Result Performing Organization Address City/[facility]/ZIP Co de Phone Number [facility] - 01 * eGFR (10/28/2024 1:54 PM CDT) Pathologist [facility] eGFR >90 >=60 mL/min/1. 73 m2 Comment: Interpretive Data Reference Interval Normal >/= 90 mL/min/1.73m2 Mildly decreased* 60 - 89 mL/min/1.73m2 Mildly to moderately decreased 45 - 59 mL/min/1.73m2 Moderately to severely decreased 30 - 44 mL/min/1.73m2 Severely decreased 15 - 29 mL/min/1.73m2 Kidney Failure < 15 mL/min/1.73m2 *Relative to young adult level Estimated glomerular filtration rate is determined by the 2020 CKD-EPI equation recommended by the National Kidney Foundation (A Unifying Approach to GFR Estimation: Recommendations of the NKF-ASK Task Force on Reassessing the Inclusion of Race in Diagnosing Kidney Disease, JASN 2020). The CKD-EPI equation should not be used for patients with unstable renal function and has not been validated in children and those over 70. Current interpretive data was last reviewed 2021. Testing performed by: [facility], [address] [place] [address]., [address] Blood 10/28/2024 1:54 PM CDT 10/28/2024 1:55 PM CDT Demi Serrano MD LAB BLOOD ORDERABLES Keisha l Result [facility] [address] [facility] Department [place] [address] * (ABNORMAL) Differential, auto (10/28/2024 1:54 PM CDT) Neutrophil abs 8.48(H) 1.50 - 6.50 K/cumm Comment:Testing performed by : [address] [address] Imm gran abs 0.03 0.00 - 0.10 K/cumm [facility] Comment:Testing performed by : [address] [address] Lymphocyte abs 3.21 0.80 - 3.30 K/cumm [facility] Comment:Testing performed by : [address] [address] Monocyte abs 0.68 0.20 - 0.80 K/cumm [facility] Comment:Testing performed by : [address] [address] Eosinophil abs 0.47 0.00 - 0.50 K/cumm [facility] Comment:Testing performed by : [address] [address] Basophil abs 0.07 0.00 - 0.10 K/cumm [facility] Comment:Testing performed by : [address] [address] Neutrophil pct 65.6 % [facility] Comment: Interpretive Data Percent cell count reference ranges are not reported, since discordance with absolute values may lead to misinterpretation of CBC data. Current Interpretive Data was last revised on 2017. Testing performed by: [address] [address] Imm gran pct 0.2 % [facility] Comment: Interpretive Data Percent cell count reference ranges are not reported, since discordance with absolute values may lead to misinterpretation of CBC data. Current Interpretive Data was last revised on 2017. Testing performed by: [address] [address] Lymphocyte pct 24.8 % [facility] Comment: Interpretive Data Percent cell count reference ranges are not reported, since discordance with absolute values may lead to misinterpretation of CBC data. Current Interpretive Data was last revised on 2017. Testing performed by: [address] [address] Monocyte pct 5.3 % [facility] Comment: Interpretive Data Percent cell count reference ranges are not reported, since discordance with absolute values may lead to misinterpretation of CBC data. Current Interpretive Data was last revised on 2017. Testing performed by: [address] [address] Eosinophil pct 3.6 % [facility] Comment: Interpretive Data Percent cell count reference ranges are not reported, since discordance with absolute values may lead to misinterpretation of CBC data. Current Interpretive Data was last revised on 2017. Testing performed by: [address] [address] Basophil pct 0.5 % [facility] Comment: Interpretive Data Percent cell count reference ranges are not reported, since discordance with absolute values may lead to misinterpretation of CBC data. Current Interpretive Data was last revised on 2017. Testing performed by: [address] [address] Blood 10/28/2024 1:54 PM CDT 10/28/2024 1:55 PM CDT us Demi Serrano MD LAB BLOOD ORDERABLES Keisha l Result [facility] [address] [facility] Department of Laboratories [place], [place] [id number] * (ABNORMAL) Iron profile w/ IBC (10/28/2024 1:54 PM CDT) Iron 62 35 - 145 mcg/dL Comment:Testing performed by : [address] [address] TIBC 386 250 - 400 mcg/dL [facility] Comment:Testing performed by : [address] [address] Transferrin saturation 16(L) 20 - 50 % [facility] Comment:Testing performed by : [address] [address] Blood 10/28/2024 1:54 PM CDT 10/28/2024 4:43 PM CDT us Demi Serrano MD LAB BLOOD ORDERABLES Keisha lesia Result [facility] [address] [facility] Department [place] [address] * (ABNORMAL) CBC with auto differential (10/28/2024 1:54 PM CDT) WBC 12.94(H) 3.80 - 9.90 K/cumm Comment:Testing performed by : [address] [address] Hgb 13.9 11.9 - 15.5 g/dL [facility] Comment:Testing performed by : [address] [address] Hct 41.6 35.6 - 45.5 % [facility] Comment:Testing performed by : [address] [address] Plt 249 150 - 400 K/cumm [facility] Comment:Testing performed by : [address] [address] MPV 9.6 9.1 - 12.3 fL [facility] Comment:Testing performed by : [address] [address] RBC 4.73 3.90 - 5.20 M/cumm [facility] Comment:Testing performed by : [address] [address] MCV 87.9 81.3 - 96.4 fL [facility] Comment:Testing performed by : [address] [address] MCH 29.4 27.1 - 33.3 pg [facility] Comment:Testing performed by : [address] [address] MCHC 33.4 32.3 - 35.7 g/dL [facility] Comment:Testing performed by : [address] [address] RDW CV 12.0 11.1 - 14.9 % [facility] PAUL Comment:Testing performed by : [address] [address] RDW SD 38.8 35.7 - 48.1 fL [facility] PAUL Comment:Testing performed by : [address] [address] NRBC abs 0.00 0.00 - 0.01 K/cumm [facility] Comment:Testing performed by : [address] [address] ANC Prelim 8.48(H) 1.50 - 6.50 K/cumm [facility] Comment: Interpretive Data The rapid ANC is a preliminary automated count and may vary from the final ANC (Neut Abs) reported in the WBC differential that follows. Current interpretive data was last revised 2024. Testing performed by: [address] [address] Blood 10/28/2024 1:54 PM CDT 10/28/2024 1:55 PM CDT Demi Serrano MD LAB BLOOD ORDERABLES Keisha l Result Performing Organization Address City/[facility]/ZIP Co de Phone Number [address] [place] [address] * Ferritin (10/28/2024 1:54 PM CDT) [facility] Ferritin 75 13 - 150 ng/mL Comment:Testing performed by : [address] [address] Blood 10/28/2024 1:54 PM CDT 10/28/2024 4:43 PM CDT Demi Serrano MD LAB BLOOD ORDERABLES Keisha l Result Performing Organization Address City/[facility]/ZIP Co de Phone Number [address] [address] * Comprehensive metabolic panel (10/28/2024 1:54 PM CDT) Sodium 140 135 - 145 mmol/L Comment:Testing performed by : [address] [address] Potassium, pl 4.5 3.3 - 4.9 mmol/L [facility] Comment:Testing performed by : [address], [place]., [address] Chloride 104 97 - 110 mmol/L [facility] Comment:Testing performed by : [address], [place]., [address] CO2 24 22 - 32 mmol/L [facility] Comment:Testing performed by : [address] [address] Anion gap 12 2 - 15 mmol/L [facility] Comment:Testing performed by : [address] [address] BUN 10 6 - 25 mg/dL [facility] Comment:Testing performed by : [address] [address] Creatinine 0.60 0.60 - 1.10 mg/dL ALEJANDRA Comment:Testing performed by : [address] [address] Glucose 86 70 - 199 mg/dL [facility] Comment: Interpretive Data Fasting glucose >/= 126 mg/dl is diagnostic for diabetes. Fasting is defined as no caloric intake for at least 8 hours. Fasting glucose between 100 mg/dl to 125 mg/dl is diagnostic of prediabetes. In a patient with classic symptoms of hyperglycemia or hyperglycemic crisis, a random glucose >/= 200 mg/dl is diagnostic for diabetes. In the absence of unequivocal hyperglycemia, results should be confirmed by repeat testing. The classification and Diagnosis of Diabetes Diabetes Care 2021; 46: S19-S40. Current interpretive data was last revised 2022. Testing performed by: [address] [address] Calcium 9.9 8.5 - 10.3 mg/dL ALEJANDRA Comment:Testing performed by : [address] [address] Bilirubin, total 0.3 0.1 - 1.2 mg/dL ALEJANDRA PAUL Comment:Testing performed by : [facility], [address] [place] [address]., [address] Protein, pl 7.9 6.5 - 8.5 g/dL ALEJANDRA PAUL Comment:Testing performed by : [facility], [address] [place] [address]., [address] Albumin 4.8 3.5 - 5.0 g/dL ALEJANDRA Comment:Testing performed by : [address] [address] Alk phos 91 40 - 130 Units/L ALEJANDRA Comment:Testing performed by : [address] [address] ALT 12 7 - 45 Units/L ALEJANDRA Comment:Testing performed by : [address] [address] AST 17 10 - 45 Units/L ALEJANDRA Comment:Testing performed by : [address] [address] Blood 10/28/2024 1:54 PM CDT 10/28/2024 1:55 PM CDT us Demi Serrano MD LAB BLOOD ORDERABLES Keisha graf Result ALEJANDRA [address] [facility] Department [place] [address] from Last 3 Months Insurance [employer] OOS BLUE ACCESS OOS TRADITIONAL BLUE ACCESS OOS Advance Directives For more information, please contact: [phone] * Full Code (Latest Code Status on File) Date Activated Date Inactivated Comments 06/30/2024 8:06 AM 06/30/2024 2:43 PM * Full Code Date Activated Date Inactivated Comments 06/20/2023 5:20 PM 06/22/2023 8:56 PM Care Teams Surveyor Geodetic Relationship Specialty Start Date End Date Jp Pearson MD PCP - General Family Medicine 08/18/22 Nagi Alejo MD [id number] [place] [address] Surgeon Colon and Rectal Surgery 08/02/23
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
--- OUTSIDE RECORDS SUMMARY | 2025-01-15 14:49 | XMS_ITS | Clinical Summary ---
Author Organization [facility] Address [address] [place] [address] Care Team Providers Care Counselor Marriage And Family Name Role Phone Drew Jackman MD Unavailable [phone] Jp Pearson MD Primary Care Provider [phone] Allergies Active Allergy Reactions Criticality Noted Date Comments Amoxicillin-Pot Clavulanate Rash Medium 12/14/19 18 Per PCP Banana Itching Low 08/05/2021 Medications BAO FE 05/19 1-20 MG-MCG tablet Take 1 tablet by mouth daily. 2 Active Vedolizumab (ENTYVIO IV) 2 Active HYDROcodone-acetami nophen (NORCO) 5-325 MG tabletIndications:A cute Pain < 7 Day Supply Take 1 tablet by mouth every 6 (six) hours as needed for Pain. Indications : Acute Pain < 7 Day Supply 12 tablet 3 Active ondansetron (ZOFRAN-ODT) 4 MG disintegrating tablet Take 1 tablet (4 mg total) by mouth every 8 (eight) hours as needed for Nausea. 20 tablet 3 Active Immunizations Immunization Administration Dates Next Due DTaP-IPV/Hib (Pentacel) 2008 Flumist (Intranasal) 05/06/2019 HPV GARDASIL 9-VALENT 03/05/2018,12/27/2016 HPV4 (Gardasil) 11/16/2014 Hepatitis A (Generic) 12/11/2007,09/27/2006 Influenza (FluMist) 05/06/2019 Influenza (Generic) 03/05/2018 Influenza Adult (Generic) 03/05/2018 MMR 2008 Menactra 05/07/2020,11/16/2014 Tdap (Generic) 11/16/2014 Family History Medical History Relation Comments No Known Problems Brother Hypertension Father Heart Disease Maternal Grandmother Heart Disease Paternal Grandfather Relation Status Comments Brother Alive Father Alive Maternal Grandfather Alive Maternal Grandmother Alive Mother Alive Paternal Grandfather Alive Paternal Grandmother Alive Social History Tobacco Use Types Packs/Day Years Used Date Smoking Tobacco: Never Smokeless Tobacco: Never Alcohol Use Standard Drinks/Week Comments No 0 (1 standard drink = 0.6 oz pur e alcohol) AUDIT-C Answer Date Recorded Frequency of Alcohol Consumption Never 11/05/2018 Average Number of Drinks Not on file 019 Frequency of Binge Drinking Not on file 12/2018 PHQ-2 Answer Date Recorded PHQ-2 Score - If the patient scores above 3, please move on to questions 3-9 0 11/01/2021 Comments No Sex and Gender Information Value Date Recorded Sex Assigned at Not on file 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 Gender Identity Not on file Sexual Orientation Not on file Last Filed Vital Signs Vital Sign Reading Time Taken Comments Blood Pressure 120/66 12/03/2023 8:19 PM CDT Pulse 82 12/03/2023 8:19 PM CDT Temperature 37.1 C (98.7 F) 12/03/2023 8:19 PM CDT Respiratory Rate 16 12/03/2023 8:19 PM CDT Oxygen Saturation 100% 12/03/2023 8:19 PM CDT Inhaled Oxygen Concentration - - Weight 52.2 kg (115 lb) 12/03/2023 8:19 PM CDT Height 154.9 cm (5' 1) 12/03/2023 8:19 PM CDT Body Mass Index 21.73 12/03/2023 8:19 PM CDT Plan of Treatment Upcoming Encounters Date Type Department Care Team (Late st Contact Info) Description 01/26/2025 8:30 AM CDT Appointment [address] [address] Marcy Zazueta, CHILD CAREGIVER [facility] [address] [place], [place] [id number] 01/26/2025 9:30 AM CDT Appointment [facility] Ultrasound [address] [place] [address] Marcy Zazueta, CHILD CAREGIVER [facility] [address] [place] [address] Health Maintenance Due Date Last Done Comments Cervical Cancer Screening Pa p Smear (Age 21 to 29) Every 3 Years 2003 Cervical Cancer Screening 2003 Annual Physical 09/29/2006 Meningococcal B Vaccine (1 o f 2 - Standard) 2019 Hepatitis C 09/29/2021 Hepatitis B Vaccines (1 of 3 - 19+ 3-dose series) 09/29/2022 PHQ-2 (Physician Dodge) 04/30/2024 DTaP, Tdap and Td Vaccines ( 3 - Td or Tdap) 11/16/2024 11/16/2014, 2008 COVID-19 Vaccine ( - 2023-2 5 season) 2024 HPV Vaccines Completed 03/05/2018, 12/27/2016, 11/16/2014 Meningococcal Vaccine Completed 05/07/2020 , 11/16/2014 Pneumococcal Vaccine: Pediatrics (0 to 5 Years) and At-Risk Patients (6 to 49 Years) Aged Out No longer eligible b ased on patient's age to complete this topic RSV Immunizations Under 20 Months Aged Out No longer eligible b ased on patient's age to complete this topic Insurance [facility] Care Teams Counselor Marriage And Family Relationship Specialty Start Date End Date Jp Pearson MD [address] [place] [address] [address] PCP - General FAMILY PRACTICE 02/16/22 Drew Jackman MD OBGYN 10/29/21
--- OUTSIDE RECORDS SUMMARY | 2025-01-15 14:49 | XMS_ITS | Encounter Summary ---
Author Organization [facility] [employer] [facility] Address [address] [place] [address] Phone Care Team Providers Care Fabric Inspector Name Role Phone Jp Pearson MD Primary Care Provider [phone] Nagi Alejo MD Unavailable [phone] Encounter Details Date Type Department Care Team (Late st Contact Info) Description 05/30/2024 Documentation [facility] Medicine Gastroenterology [address] [place] [address] Medical Office Building [phone] Soledad Clancy CMA Social History Tobacco Use Types Packs/Day Years Used Date Smoking Tobacco: Some Days Vaping Passive Smoke Exposure: Never Smokeless Tobacco: Never Alcohol Use Standard Drinks/Week Comments No 0 (1 standard drink = 0.6 oz pur e alcohol) AUDIT-C Answer Date Recorded Q1: How often do you have a drink containing alc ohol? 2-4 times a month 05/30/2024 Q2: How many drinks containi ng alcohol do you have on a typical day when you are drinking? 1 or 2 05/30/2024 Q3: How often do you have si x or more drinks on one occasion? Never 05/30/2024 PHQ-2 Answer Date Recorded PHQ-2 Total Score (If total score is 3 or more points, staff should administer the PHQ-9) 1 07/10/2023 PHQ-9 Answer Date Recorded PHQ-9 Total Score 5 07/10/2023 Personal Safety Answer Date Recorded Have you ever been in or are you currently in a harmful physical or emotional relationship or is someone making you feel afraid or unsafe? Denies 09/28/2023 Comments No Sex and Gender Information Value Date Recorded Sex Assigned at Not on file Legal Sex Female 4:17 PM CDT Gender Identity Not on file Sexual Orientation Not on file documented as of this encounter Functional Status * AUDIT-C Score Answer Date of Assessment Author 2 05/30/2024 11:05 AM Shalonda Francois CMA * Question Answer Date of Assessment Author Q1: How often do you have a drink containing alcohol? 2-4 times a month 05/30/2024 11:05 AM Shalonda Francois CMA Q2: How many drinks containing alcohol do you have on a typical day when you are drinking? 1 or 2 05/30/2024 11:05 AM Shalonda Francois CMA Q3: How often do you have six or more drinks on one occasion? Never 05/30/2024 11:05 AM Shalonda Francois CMA documented as of this encounter Plan of Treatment Not on file documented as of this encounter Visit Diagnoses Not on filedocumented in this encounter Care Teams Fabric Inspector Relationship Specialty Start Date End Date Jp Pearson MD PCP - General Family Medicine 08/18/22 Nagi Alejo MD [phone] [place] [address] Surgeon Colon and Rectal Surgery 08/02/23 documented as of this encounter
[2025-01-15 14:56] VITALS: BP 111/70; PULSE 95; RESP 16; TEMP 36.2; O2SAT 100
--- NOTE | 2025-01-15 14:58 | ECG_ITS ---
Test Date: 2025-01-15 15:08:04 Measurements Intervals [place] Rate: 80 P: 48 WY: 117 QRS: 52 QRSD: 86 T: 49 QT: 354 QTc: 409 Interpretive Statements SINUS RHYTHM WITH SINUS ARRHYTHMIA WITH SHORT WY INTERVAL NONSPECIFIC T-WAVE ABNORMALITY ABNORMAL ECG Compared to ECG 12/30/2023 17:45:02 Short WY interval now present T-wave abnormality no longer present Possible ischemia no longer present Electronically Signed On 01-15-2025 17:59:14 CDT by Nagi Lomas M.D.
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
[2025-01-15 16:31] VITALS: BP 132/77; PULSE 88; RESP 16; O2SAT 100
[2025-01-15 16:37] LABS: BEDSIDEPREGUCG Negative (Negative)
[2025-01-15 16:44] LABS: Hematocrit 43.9 % (37.0-47.0); Hemoglobin 14.6 g/dL (12.0-15.0); Immature Granulocyte Percent A 0.4 % (0-0.5); Lymphocytes Absolute Auto 3.73 K/mm3 (0.9-3.2); Mean Corpuscular HGB Conc 33.3 g/dl (32-36); Mean Corpuscular Hemoglobin 29.7 pg (26-34); Mean Corpuscular Volume 89.2 fl (80-100); Nucleated Red Blood Cells Absolute Auto 0.000 K/mm3 (0.0-0.012); Nucleated Red Blood Cells Perc 0.0 % (0.0-0.2); Platelet Count Result 264 k/mm3 (150-375); Red Blood Count 4.92 M/mm3 (4.2-5.4); White Blood Count 13.7 K/mm3 (4.5-10.0)
[2025-01-15 16:45] LABS: Add Urine Microscopic? NO; Appearance Urine Clear (Clear); Glucose Urine UA Negative (Negative); Leukocyte Esterase Ur Negative LEU/UL (Negative); Nitrate Urine Negative (Negative); Specific Grav Ur 1.008 (1.001-1.035)
[2025-01-15 16:54] LABS: Alanine Aminotransferase 16 U/L (6-35); Albumin Level 4.9 g/dL (3.5-5.1); Alkaline Phosphatase 79 U/L (38-126); Anion Gap 7 mmol/L (4-12); Aspartate Amino Transferase 30 U/L (14-36); Bilirubin,Total 0.3 mg/dL (0.2-1.3); Blood Urea Nitrogen 12 mg/dL (7-17); Calcium 9.6 mg/dL (8.4-10.2); Carbon Dioxide 27 mmol/L (22-30); Chloride 103 mmol/L (98-107); Estimated CRCL calculation 78 ml/min; Estimated Glomerular Filt Rate > 60; Glucose 90 mg/dL (65-110); Magnesium 2.2 mg/dL (1.6-2.3); Potassium 4.1 mmol/L (3.4-5.0); Sodium 137 mmol/L (137-145); Total Protein 8.8 g/dL (6.3-8.2)
[2025-01-15 17:06] LABS: Troponin I < 0.012 ng/mL (0.000-0.034)
[2025-01-15 17:21] LABS: Influenza A QL RT-PCR Negative (Negative); Influenza B QL RT-PCR Negative (Negative); RSV RNA, RT-PCR Negative (Negative); SARS-CoV-2 RNA PCR Negative (Negative)
[2025-01-15 17:38] LABS: Thyroid Stimulating Hormone Reflex 1.590 uIU/mL (0.465-4.68)
[2025-01-15 17:55] LABS: Cannabinoid Screen Urine Negative (Negative)
[2025-01-15 17:57] VITALS: BP 124/86; PULSE 84; RESP 18; O2SAT 99
== END 2025-01-15 17:57 | disposition home or self-care (01) ==
LOC: ANHED 17:46
PROVIDERS: Emergency Provider Registered Nurse; PCP Nurse Practitioner Family
DX: B34.9 Viral infection, unspecified (principal); Z20.822 Contact with and (suspected) exposure to COVID-19; K50.90 Crohn's disease, unspecified, without complications; F17.290 Nicotine dependence, other tobacco product, uncomplicated; R94.31 Abnormal electrocardiogram [ECG] [EKG]; Z79.620 Long term (current) use of immunosuppressive biologic
CPT/HCPCS: 36415; 71046; 80053; 80307; 81003; 81025; 83735; 84443; 84484; 85025; 85380; 87637; 93005; 99284